=== PATIENT | female | born 1975 | race Caucasian/White ===

== ENCOUNTER → 2018-07-04 | Outpatient (CLI) | payer BC, OTHER ==
[~2018-07-04] MED LIST: CIPRO250 M1 PO; PYRIDIUM200 MG PO; birth control
== END ==
LOC: M.ULTRA 13:36
DX: R22.41 Localized swelling, mass and lump, right lower limb (principal)

== ENCOUNTER → 2018-07-12 | Outpatient (CLI) | payer BC, OTHER | LOC: M.MRI 14:07 | DX: S83.241A Other tear of medial meniscus, current injury, right knee, initial encounter (principal); X58.XXXA Exposure to other specified factors, initial encounter; Y93.89 Activity, other specified; Y92.89 Other specified places as the place of occurrence of the external cause; Y99.8 Other external cause status ==